=== PATIENT | female | born 1960 | race Caucasian/White ===

== ENCOUNTER → 2016-06-08 | Outpatient (CLI) | payer BC | LOC: MC.RAD 07:40 | DX: Z12.31 Encounter for screening mammogram for malignant neoplasm of breast (principal) ==

== ENCOUNTER → 2019-03-01 | Outpatient (CLI) | payer BC | LOC: MC.RAD 11:08 | DX: Z12.31 Encounter for screening mammogram for malignant neoplasm of breast (principal) ==

== ENCOUNTER 2019-05-22 10:11 | Outpatient (CLI) | payer BC ==
[~2019-05-22] VITALS: Ht 167.6 cm; Wt 63.6 kg
[~2019-05-22 10:11] MED LIST: AMITRIPTYLINE H10 M1 PO; CELEXA10 MG PO; FIORINAL 325 MG1 CAP PO
[2019-05-22 10:26] VITALS: BP 160/90; PULSE 73
[2019-05-22 11:05] VITALS: BP 147/86; PULSE 64; PULSE 65
--- NOTE | 2019-05-22 11:11 | NUR ---
Pt to express from radiology s/p lumbar puncture. pt transferred to cot with no problem, she is awake and alert, p,w,d, reg and unlabored resps. plan to monitor till discharge. she has call light, and her is at bs.
[2019-05-22 11:25] VITALS: BP 143/83; PULSE 64
[2019-05-22 11:29] LABS: GLUCOSE,CSF 48 mg/dL (40-70); TOTAL PROTEIN,CSF 38 mg/dL (15-45)
[2019-05-22 11:40] VITALS: BP 148/82; PULSE 62
[2019-05-22 11:55] VITALS: BP 157/86; PULSE 78
[2019-05-22 12:19] LABS: CSF APPEARANCE CLEAR; CSF COLOR COLORLESS; CSF RBC 3 /mm3 (0-0)
[2019-05-22 12:37] LABS: CSF MONONUCLEAR 100 % (70-100); CSF POLYMORPHONUCLEAR 0 % (0-6)
[2019-05-22 13:25] VITALS: BP 148/92; PULSE 63
== END 2019-05-22 13:35 | disposition home or self-care (01) ==
LOC: COL.RAD 10:11
PROVIDERS: Psychiatry & Neurology Neurology
DX: G37.9 Demyelinating disease of central nervous system, unspecified (principal)

== ENCOUNTER 2019-05-23 15:36 | Emergency (ER) | payer BC ==
[~2019-05-23] VITALS: Ht 167.6 cm; Wt 63.6 kg
[2019-05-23 15:40] VITALS: TEMP 96.7
[2019-05-23 16:28] LABS: BASO % 0.4 % (0.0-2.0); EOS # 0.1 (0.0-0.7); EOS % 1.8 % (0-4.0); GRAN # 2.7 (1.4-6.5); GRAN % 54.6 % (42.2-75.2); HEMATOCRIT 40.9 % (37.0-47.0); HEMOGLOBIN 13.9 g/dl (12.5-16.0); LYMPH # 1.7 (1.2-3.4); LYMPH % 34.4 % (20.0-51.0); MEAN CELL VOLUME 93 fl (80.0-100.0); MEAN CORPUSCULAR HEMOGLOBIN 32 pg (27.0-31.0); MEAN CORPUSCULAR HGB CONC 34 g/dl (33.0-37.0); MEAN PLATELET VOLUME 8.4 fl (7.4-10.4); MONO # 0.4 (0.1-0.6); MONO % 8.6 % (1.7-9.3); PLATELET COUNT 231 K/mm3 (130-400); RED BLOOD COUNT 4.39 M/mm3 (4.10-5.30); REDCELL DISTRIBUTION WIDTH-CV 11.8 % (11.5-14.5)
[2019-05-23 16:39] LABS: ANION GAP 9 mmol/L (7-16); BLOOD UREA NITROGEN 14 mg/dL (7-17); CALCIUM 9.4 mg/dL (8.4-10.2); CARBON DIOXIDE 27 mmol/L (22-30); CHLORIDE 101 mmol/L (98-107); CREATININE, serum 0.76 (0.52-1.25); GLUCOSE 80 mg/dL (74-106); POTASSIUM 3.7 mmol/L (3.4-5.0); SODIUM 137 mmol/L (137-145)
[2019-05-23 16:42] LABS: C-REACTIVE PROTEIN < 0.5 mg/dL (0.0-0.9)
[2019-05-23 18:30] VITALS: BP 151/92; PULSE 63
== END 2019-05-23 19:03 | disposition home or self-care (01) ==
LOC: COL.ER 15:36
PROVIDERS: Emergency Medicine
DX: G97.1 Other reaction to spinal and lumbar puncture (principal); Z79.82 Long term (current) use of aspirin
CPT/HCPCS: J1885; J2405; J3010; J7030